=== PATIENT | male | born 1950 | race Caucasian/White ===

== ENCOUNTER → 2022-02-03 02:18 | Outpatient (CLI) | payer MEDICARE, BC, SELFPAY ==
[2022-02-03 11:33] LABS: SARS-CoV-2 RNA PCR Positive
== END ==
PROVIDERS: PCP Emergency Medicine; Visit Provider Nurse Practitioner
DX: U07.1 COVID-19 (principal)
CPT/HCPCS: C9803; U0003; U0005

== ENCOUNTER 2024-01-28 11:35 | Emergency (ER) | payer MEDICARE, BC, SELFPAY ==
[2024-01-28 11:45] VITALS: BP 148/62; PULSE 73; RESP 18; TEMP 36.2; O2SAT 99
--- NOTE | 2024-01-28 11:54 | ED.SKABFB ---
HPI - Skin/Abscess/Foreign Bdy General Chief complaint: Skin/Abscess/Foreign Body Stated complaint: tick bite Time Seen by Provider: 01/28/24 11:54 Source: patient Mode of arrival: ambulatory Limitations: no limitations History of Present Illness HPI narrative: 73-year-old male presents with concern for tick bite right forearm. Patient states he was holding his arm up in near while brushing teeth and still something blocking off right forearm. Brought in with him to show us. Patient states that he had a friend in the past that got a severe infection from a tick bite. Patient concerned he may need an antibiotic. All systems reviewed and negative except as noted above. Related Data Home Medications Medication Instructions Recorded Confirmed aspirin 81 mg tablet,delayed 81 mg PO DAILY 04/15/19 01/28/24 release omega 3-nwi-zgy-fish oil 60 mg-90 1 cap PO DAILY 12/08/22 01/28/24 mg-500 mg capsule (Fish Oil) Allergies Allergy/AdvReac Type Severity Reaction Status Date / Time metaxalone Allergy Unknown itchy rash Verified 01/28/24 11:56 Review of Systems Review of Systems: CONSTITUTIONAL: Denies fever, chills, or sweats. EYES: Denies visual changes, redness, or discharge. ENT: Denies rhinorrhea, congestion, sore throat, or otalgia. CARDIOVASCULAR: Denies chest pain, palpitations, or edema. RESPIRATORY: Denies cough or dyspnea. GASTROINTESTINAL: Denies abdominal pain, nausea, vomiting, or diarrhea. GENITOURINARY: Denies dysuria or hematuria. SKIN: Denies rash or itching. Patient concern for tick bite to right forearm. MUSCULOSKELETAL: Denies back pain, joint pain, or myalgia. NEUROLOGIC: Denies headache, numbness, or weakness. PSYCHIATRIC: Denies anxiety or depression. All other systems reviewed are negative, except as documented in HPI. [facility] Past Medical History Medical History Osteomyelitis of left ankle Polycythemia Surgical History Surgical History H/O prostate biopsy 11/2022 Dr. Del Toro OA History of cardiac cath History of cataract surgery Family History Family History Sibling Carcinoma of colon Family history of malignant neoplasm of breast in first degree relative Family history of cardiovascular disease Family history of coronary artery disease Family history of malignant neoplasm of thyroid Mother Family history of coronary artery disease Acute myocardial infarction, Onset Age: 66 Father Family history of coronary artery disease Family history of malignant neoplasm of thyroid Family history of Hodgkin's lymphoma, Onset Age: 56 Social History Social History Social History: Caffeine-coffee Smoking status: Never smoker Alcohol intake: current Drinks per week: 2 Alcohol use details: beer monthly Substance use type: does not use Lack of Transportation: No Lack of Food: Never True Current Housing: I Have Housing Concerned About Future Housing: No Difficulty Paying Gas/Electric Bills: No Difficulty Paying for Meds: No Currently Unemployed: No Education: Bachelor's Degree Difficulty w/ Childcare or Family Care: No Living arrangements: with family Gender identity (if verbalized by the patient): Male Comments At time of signature, agree with nursing past medical, surgical, social and family history. There is no relevant family history pertinent to the presenting complaint. Exam Narrative: GENERAL: This is a well-nourished, well-developed patient, in no apparent distress. HEAD: normocephalic, atraumatic. EYES: PERRL. Sclera clear/white. Vision is grossly intact. EARS: External ears normal NOSE: External nose normal NECK: Neck supple, non-tender without lymphadenopathy, masses or thyromegaly. CARDIO
== END 2024-01-28 12:00 | disposition home or self-care (01) ==
PROVIDERS: Emergency Provider Nurse Practitioner Family; PCP Emergency Medicine
DX: Z71.1 Person with feared health complaint in whom no diagnosis is made (principal); Z79.82 Long term (current) use of aspirin
CPT/HCPCS: 99211; G0463